=== PATIENT | male | born 1955 | race Caucasian/White ===

== ENCOUNTER 2016-09-11 04:27 | Emergency (ER) | payer OTHER ==
[~2016-09-11] VITALS: Ht 188 cm; Wt 79.4 kg
[~2016-09-11 04:27] MED LIST: NOHOMEMEDICATIONS; NORCO 5-325 TA1 EACH PO
[2016-09-11 04:57] LABS: ABSOLUTE NEUTROPHILS 3.3 thou/uL (1.4-8.2); BASOPHILS 1.2 % (0.0-2.0); EOSINOPHILS 5.1 % (0.0-3.0); HEMATOCRIT 42.4 % (42.0-52.0); HEMOGLOBIN 14.4 gm/dL (14.0-18.0); LYMPHOCYTES 30.4 % (24.0-44.0); MCH 30.1 pg (26.0-34.0); MCV 88.5 fL (80.0-100.0); MONOCYTES 8.5 % (1.0-8.0); PLATELET COUNT 191 thou/uL (150-400); POLYS 54.8 % (36.0-66.0); RBC 4.79 mil/uL (4.50-6.00); RDW 13.6 % (10.5-14.5)
[2016-09-11 04:58] LABS: MANUAL DIFF NO
[2016-09-11 05:11] LABS: CALCIUM 8.6 mg/dL (8.5-10.1); CREATININE 1.1 mg/dL (0.7-1.3); POTASSIUM 3.8 mmol/L (3.5-5.1)
[2016-09-11 05:14] LABS: ALBUMIN 3.8 g/dL (3.4-5.0); DIRECT BILIRUBIN 0.1 mg/dL (<0.1-0.3); TOTAL BILIRUBIN 0.5 mg/dL (<0.1-1.0); TOTAL PROTEIN 6.9 g/dL (6.4-8.2)
[2016-09-11] MEDS ORDERED: NORCO 5-325 TA1 EACH PO (05:59)
[2016-09-11] MEDS ORDERED: FLOMAX0.4 MG PO (05:59)
[2016-09-11 06:31] LABS: URINE BILIRUBIN NEGATIVE (Negative); URINE BLOOD 2+ (Negative); URINE COLOR YELLOW; URINE GLUCOSE-RANDOM* NEGATIVE (Negative); URINE KETONES NEGATIVE (Negative); URINE NITRITE NEGATIVE (Negative); URINE PROTEIN (DIPSTICK) NEGATIVE (Negative); URINE UROBILINOGEN 0.2 E.U./dl (0.2-1.0)
[2016-09-11] MEDS ORDERED: SENOKOT-S1 TA1 PO (06:48)
[2016-09-11 07:05] VITALS: BP 113/67
[2016-09-11 07:12] LABS: CASTS None Seen /LPF (None Seen); CRYSTALS None Seen /LPF (None Seen); SQUAMOUS 0-3 Few /LPF (0-3); URINE RBC 3-10 Few /HPF (0-2); URINE WBC None Seen /HPF (0-5)
[2016-09-11 07:13] LABS: BACTERIA None Seen /HPF (None Seen)
== END 2016-09-11 07:06 | disposition home or self-care (01) ==
LOC: ER 04:27
PROVIDERS: Emergency Medicine
DX: N20.1 Calculus of ureter (principal)